=== PATIENT | female | born 1990 | race Caucasian/White ===

== ENCOUNTER 2018-04-21 18:50 | Emergency (ER) | payer OTHER ==
[~2018-04-21] VITALS: Ht 154.9 cm; Wt 52.2 kg
--- NOTE | 2018-04-21 19:34 | NUR ---
Patient discharged to home in stable conditon. Written and verbal after care instructions given. Patient verbalizes understanding of instructions.
[2018-04-21 20:00] VITALS: BP 118/74
== END 2018-04-21 20:01 | disposition home or self-care (01) ==
LOC: ER 18:50
DX: L03.115 Cellulitis of right lower limb (principal)
CPT/HCPCS: A4663